=== PATIENT | female | born 1980 | race Caucasian/White ===

== ENCOUNTER 2018-03-30 10:52 | Day surgery (SDC) | payer OTHER ==
[2018-03-30 12:06] LABS: BASO % 0.8 % (0.0-2.0); EOS # 0.1 K/uL (0.0-0.7); EOS % 2.4 % (0.0-4.0); HEMOGLOBIN 12.9 g/dL (11.0-16.0); LYMPH # 2.1 K/uL (1.0-4.3); MEAN CELL VOLUME 89.7 fL (81.0-99.0); MEAN CORPUSCULAR HEMOGLOBIN 30.2 pg (27.0-31.0); MEAN CORPUSCULAR HGB CONC 33.7 g/dL (33.0-37.0); MEAN PLATELET VOLUME 9.2 fL (7.2-11.7); MONO # 0.6 K/uL (0.0-0.8); MONO % 10.5 % (0.0-10.0); NEUT # 3.1 K/uL (1.8-7.0); NEUT % 51.3 % (50.0-75.0); RBC 4.27 Mil/uL (3.80-5.20); RED CELL DISTRIBUTION WIDTH 14.1 % (11.5-14.5)
--- NOTE | 2018-03-30 15:07 | CP.PCM.HP ---
History of Present Illness - History of Present Illness History of Present Illness: 37 yo wit abdomian pain pelvic pain bladder pain adenomyosis ND ENDOMETRIOSIS PT FAILED VARIOUS MEDICAL TREATOMENS AND THE PAIN HAS NOT SUBSIDED Present on Admission - Present on Admission Any Indicators Present on Admission: No Past Patient History - Past Medical History & Family History Past Medical History?: Yes - Past Social History Smoking Status: Former Smoker - CARDIAC Other/Comment: PALPITATIONS ONCE A YEAR. As per patient she does not need to see a certified emergency vehicle technician - PULMONARY Hx Respiratory Disorders: No - NEUROLOGICAL Hx Neurological Disorder: No - HEENT Hx HEENT Problems: No - RENAL Hx Chronic Kidney Disease: No - ENDOCRINE/METABOLIC Hx Endocrine Disorders: No - HEMATOLOGICAL/ONCOLOGICAL Hx Blood Disorders: No - INTEGUMENTARY Hx Dermatological Problems: No - MUSCULOSKELETAL/RHEUMATOLOGICAL Hx Musculoskeletal Disorders: Yes Other/Comment: SCOLIOSIS - GASTROINTESTINAL Hx Gastrointestinal Disorders: No - GENITOURINARY/GYNECOLOGICAL Hx Genitourinary Disorders: No Hx Reproductive Disorders: Yes (endometriosis) - PSYCHIATRIC Hx Psychophysiologic Disorder: No - SURGICAL HISTORY Hx Surgeries: Yes Other/Comment: BREAST AUGMENTATION. LAPAROSCOPY. HYSTEROSCOPY. RIGHT WRIST SURGERY - ANESTHESIA Hx Anesthesia: Yes Hx Anesthesia Reactions: Yes (VERY SICK) Hx Malignant Hyperthermia: No Meds Allergies/Adverse Reactions: Allergies Allergy/AdvReac Type Severity Reaction Status Date / Time acetaminophen [From Percocet] Allergy Intermediate ITCHING Verified 03/30/18 11: 20 hydrocodone [From Vicodin] Allergy Intermediate ITCHING Verified 03/30/18 11:20 oxycodone [From Percocet] Allergy Intermediate ITCHING Verified 03/30/18 11:20 Physical Exam - Exam Bimanual exam: Adenexal Mass, Cervical Motion Tendernes, Uterine Enlargement, Uterine Tenderness Results - Vital Signs Recent Vital Signs: Last Vital Signs Temp 97.8 F 03/30/18 11:12 Pulse 57 L 03/30/18 11:12 Resp 18 03/30/18 11:12 BP 104/66 03/30/18 11:12 Pulse Ox 100 03/30/18 11:12 - Labs Result Diagrams: 03/30/18 11:58 Labs: Laboratory Results - last 24 hr 03/30/18 03/30/18 11:58 11:58 WBC 6.0 RBC 4.27 Hgb 12.9 Hct 38.3 MCV 89.7 MCH 30.2 MCHC 33.7 RDW 14.1 Plt Count 291 MPV 9.2 Neut % (Auto) 51.3 Lymph % (Auto) 35.0 Sampson % (Auto) 10.5 H Eos % (Auto) 2.4 Baso % (Auto) 0.8 Neut # (Auto) 3.1 Lymph # (Auto) 2.1 Sampson # (Auto) 0.6 Eos # (Auto) 0.1 Baso # (Auto) 0.0 Blood Type A POSITIVE Antibody Screen Negative Assessment & Plan - Assessment and Plan (Free Text) Assessment: SYMPRTOMATIC ENDOMETRIOSIS Plan: ROBOTIC LAparoscopy - Date & Time Date: 03/30/18 Time: 15:07
[2018-03-30] MEDS ORDERED: Propofol 10 mg/ml Inj (20 ML) ONE ×2 (16:12→19:29)
[2018-03-30] MEDS ORDERED: Midazolam 2 MG/2 ML VIAL ONE (16:12)
[2018-03-30] MEDS ORDERED: Succinylcholine Chloride 20 mg/ml Syr (5 ml) IV ONE (16:14)
[2018-03-30] MEDS ORDERED: Rocuronium 10 mg/ml (5 ml) ONE (16:15)
[2018-03-30] MEDS ORDERED: ceFAZolin 1 gm in NS 1 GM/100 ML BAG IVPB ONE (16:28)
[2018-03-30] MEDS ORDERED: Bupivacaine 0.25% 20 ML INJ IJ ONE (16:28)
[2018-03-30] MEDS ORDERED: Neostigmine Methylsulfate 3mg/3ml Syringe IV ONE (19:21)
[2018-03-30] MEDS ORDERED: Morphine 4 MG/ML VIAL IV PRN (19:49)
[2018-03-30] MEDS ORDERED: HYDROmorphone 0.5 mg/0.5 ml ISec IVP PRN (19:50)
[2018-03-30] MEDS ORDERED: Lactated Ringer's 1,000 ML IV SCH ×2 (20:00)
[2018-03-31 11:37] VITALS: BP 93/60; PULSE 79; RESP 18; TEMP 98.3; O2SAT 99
--- NOTE | 2018-04-09 16:11 | OP ---
Copied To: Lamin Stoner MD Attending MD: Lamin Stoner MD PROCEDURE DATE: 03/30/2018 PROCEDURE DATE: 03/30/2018 SURGEON: Lamin Stoner MD EMPLOYEE COMMUNICATIONS COORDINATOR : Angel LEWIS TYPE OF ANESTHESIA: General endotracheal. PREOPERATIVE DIAGNOSES: 1. Incapacitating pelvic pain. 2. Incapacitating abdominal pain. 3. Abnormal uterine bleeding. 4. History of pelvic endometriosis. 5. History of previously failed medical and surgical therapy. 6. History of severe endometriosis and pelvic adhesions. 7. Gastrointestinal and genitourinary systems. 8. Rule out interstitial cystitis. POSTOPERATIVE DIAGNOSES: 1. Incapacitating pelvic pain. 2. Incapacitating abdominal pain. 3. Abnormal uterine bleeding. 4. History of pelvic endometriosis. 5. History of previously failed medical and surgical therapy. 6. History of severe endometriosis and pelvic adhesions. 7. Gastrointestinal and genitourinary systems. 8. Rule out interstitial cystitis. 9. Mild ureteral distention. PROCEDURES PERFORMED: 1. Exam under anesthesia. 2. Video assisted hysteroscopy. 3. Cystoscopy. 4. Bilateral ureteral catheterization and injection of IC-Green dye. 5. Robotic da Linsey operative laparoscopy. 6. Treatment of endometriosis. 7. Excision of endometriosis. 8. Bilateral ureterolysis. 9. Bilateral ovariolysis. COMPLICATIONS: None. SAMPLES SENT: 1. Periureteral endometriosis. 2. Left periureteral endometriosis. 3. Left periureteral endometriosis. 4. Left periureteral endometriosis. 5. Left uterosacral endometriosis. 6. Iliac endometriosis. 7. Posterior cervical endometriosis. 8. Rectal endometriosis, anterior. INDICATION FOR THE PROCEDURE AND CONSENT: The patient had a long history of pelvic pain, dysmenorrhea, dyspareunia, abdominal pain, and bladder pain. She had a prior surgery approximately a year ago which was unsuccessful but had identified endometriosis. The patient had been thoroughly evaluated and counseled regarding the pros and cons of the procedure, the reasonable alternatives, and possible complications. She understood and accepted the risks involved. iterature was provided to the patient. The patient was understanding and given her history and per surgical exam, she was at high risk in an average patient. She accepted all the risks involved, and all the questions had been answered to her satisfaction. FINDINGS OF SURGERY: Genitalia: Normal external genitalia, cervix without lesion and polyps. Hysteroscopy: Hysteroscopy shows a clear uterine cavity with no polyps or masses noticed. Cystoscopy: The cystoscopy was performed to rule out endometriosis and also any interstitial cystitis and also injury. The bladder was normal with no evidence of stone, trigonitis, or cystitis. A positive jet flow was identified in both ureters. Laparoscopy: The upper abdomen appeared to be normal. Gallbladder was normal. Liver edges appeared to be normal. Ascending colon and transverse were normal. There was evidence of adhesions, fibrosis, and endometriosis of the rectovaginal septum with attachment to the bowel through the posterior aspect of the uterus in both the right and left adnexa. More specifically, the left adnexa were severely adherent to the posterior pelvic sidewall and the posterior aspect of the uterus. Both fallopian tubes appeared to be patent, although there was evidence of endometriosis on the serosal surface of both fallopian tubes, and there was slight conglutination of both fimbriated ends although they both appeared to be functional. There was also evidence of endometriosis in the rectovaginal septum and the posterior cul-de-sac. There was also evidence of mild hydroureters. DESCRIPTION OF THE PROCEDURE: Initiation of the case: After adequate anesthesia was obtained, the patient was placed in the dorsal lithotomy position, and with extreme care, placement of the patient with hyperextension and hyperflexing of the hips. At this point, the patient was prepped and draped. The surgeon was gowned and gloved. A timeout was taken according to the hospital procedure and the procedure was started. At this point, we performed cystoscopy, bilateral ureteral catheterization. A cystoscope was inserted into the bladder under direct visualization and the bladder was visualized. The bladder was free of lesions and tumors. There was no evidence of interstitial cystitis, and there was only mild amount of trigonitis. At this point, both ureters were identified and appeared to be in their normal anatomical position. At this point, utilizing an open 5-Czech open-ended catheter, the left ureter was catheterized all the way to the distal ureter, and 5 mL of IC-Green was injected into this ureter. Similarly, the contralateral ureter was catheterized all the way to the distal ureter, and 5 mL of IC-Green was injected into the distal ureter. At this point, the stents were removed, and the cystoscope was removed, and the 16-Czech Whitlock was inserted into the bladder. At this point, we proceeded with a hysteroscopy. A speculum was placed into vagina, and the anterior lip of the cervix was grasped. The cervix was ligated, and a hysteroscope was inserted into the cavity. The cavity appeared to be of normal size with no evidence of polyps, cysts, adenomyosis, or fibroids. At this point, we proceeded with placement of a trocar and docking of the da Linsey Xi robot. The surgeon was regowned and gloved, and open laparoscopy was performed by making incision in the umbilicus and the fascia was incised. The peritoneum was entered in a blunt fashion, and the cannula was inserted under direct visualization. The abdomen was insufflated, and under direct visualization, three additional ports were inserted in the left upper quadrant, left mid quadrant, and right upper quadrant. At this point, the da Linsey Xi robot was brought into the field and docked, and the instruments were inserted under direct visualization. All this with extreme care not to injure the bowel or another area. As per dictation, the upper abdomen appeared to be normal with no evidence of any lesions. At this point, we proceeded with a left ureterolysis. The ureter appeared to be dialled and was clearly identified utilizing IC-Green fluorescent technology. Anesthesia was made in the peritoneum at the top of the pelvic brim, and the incision was then carried down all the way opening the peritoneum all the way down from the pelvic brim, all the way down to the ovarian fossa, extending the incision below the ovary. It was a progressive dissection where the ureter was progressively lateralized and peritoneum was medialized, thus freeing the ureter all the way down to the cross of the uterine vessels. After this was done, the ureter was freed and lateralized, and a larger peritoneum which had been opened, was excised, and sent to pathology. At this point, with the aid of very slow process, I was able to elevate the ovary and proceed with ovariolysis. At this point, we proceeded with a left ovariolysis. The left ovary was severely adherent to the posterior aspect of the uterus. It was gently dissected in a step by step way. It was peeled off, the ovarian fossa, and an area of extensive fibrosis and endometriosis was exposed. At this point, we proceeded with a right ureterolysis. The ureter was identified again utilizing fluorescent technology on the right hand side and retroperitoneal space was entered, and a full dissection was performed, entering the retroperitoneal space and dissecting the ureter, removing the ureter laterally and the peritoneum medially. A full dissection was performed all the way down to the ovarian fossa and the crossing of the uterine arteries. An area of peritoneum containing endometriosis was dissected and sent to Pathology. At this point, we proceeded with a right ovariolysis. The right ovary was adherent to the peritoneum. It was gently elevated progressively, and dissected off from the peritoneal area. All this done with extreme care to preserve vascularization to the ovary. At this point, we proceeded with treatment of endometriosis and excision of endometriosis. On the left hand side, there was extensive fibrosis, especially in the left ovarian fossa where the ovary was extremely adherent to the pelvic sidewall. In a very progressive step by step fashion, we dissected off fibrosis containing endometriosis and freed up the whole area. The ureters which had been retroverted flexed had been freed. Large areas of fibrosis were also identified in the posterior cul-de-sac and in the rectovaginal space which was also affected with endometriosis and fibrosis. At this point, we proceeded with the excision of perirectal endometriosis. The rectovaginal area had significant fibrosis and additional endometriosis was dissected from the posterior aspect of the uterus, and the left and right perirectal areas were completely freed up and dissected with extensive endometriosis. All this done making sure that no damage to the rectum was performed. At this point, endometriosis was also excised from the right uterosacral area which also was affected by fibrosis and endometriosis. At this point, we proceeded with excision of endometriosis in the right and left iliac areas. The patient had endometriosis implant on the serosal surface of the fibrosis of the left fallopian tube which was adherent to the upper part of the pelvic rim. This was dissected and sent to Pathology. Attention was on the contralateral fallopian tube which was also affected with endometriosis, and a large area of endometriosis and fibrosis was dissected off and sent to Pathology as well. At this point, it was checked for hemostasis and appeared to be excellent. Both fallopian tubes were in good condition and patent. At this point, the da Linsey Xi robot was removed. The abdomen was desufflated, and the incisions were closed in layers with 0 PDS for the fascia and 4-0 Monocryl for the skin. At the end of the procedure, all tips and instrument counts were correct. The patient tolerated the procedure well and was taken to the recovery room in excellent condition. Lamin Stoner MD ANGEL
== END 2018-03-31 11:25 | disposition home or self-care (01) ==
LOC: C.SDS 10:52 → C.4M 19:50 → C.SDS 03-31 11:25
PROVIDERS: ATTEND Obstetrics & Gynecology Reproductive Endocrinology
DX: N80.0 Endometriosis of uterus (principal); N80.3 Endometriosis of pelvic peritoneum; N73.6 Female pelvic peritoneal adhesions (postinfective); N80.4 Endometriosis of rectovaginal septum and vagina; N93.9 Abnormal uterine and vaginal bleeding, unspecified; N80.5 Endometriosis of intestine; N94.6 Dysmenorrhea, unspecified; Z87.891 Personal history of nicotine dependence; Z88.5 Allergy status to narcotic agent
CPT/HCPCS: 36415; 52332; 58662; 85025; 86850; 86900; 88305; 88342; J0690; J1170; J1885; J2250; J2704; J2710; J3010; J7120